=== PATIENT | female | born 1965 | race Caucasian/White ===

== ENCOUNTER 2020-04-05 08:05 | Outpatient (CLI) | payer BC, SELFPAY ==
--- NOTE | ~2020-04-05 | XR_ITS ---
XR clavicle BI DATE: 04/05/2020 08:39 INDICATION: Localized swelling, mass, lump over right clavicle area TECHNIQUE: AP and up angled AP views of each clavicle COMPARISON: None FINDINGS: No fracture, dislocation, periosteal reaction or bone destruction of either clavicle is moisés dent. . There is dextroscoliosis of the upper thoracic spine. IMPRESSION: No significant abnormality of either clavicle is detected Reviewed, dictated and finalized at location A.
== END 2020-04-05 08:06 | disposition home or self-care (01) ==
PROVIDERS: PCP Family Medicine; Visit Provider Family Medicine
DX: R22.9 Localized swelling, mass and lump, unspecified (principal)
CPT/HCPCS: 73000

== ENCOUNTER → 2020-09-10 07:51 | Outpatient (CLI) | payer BC, SELFPAY ==
--- NOTE | ~2020-09-10 | XR_ITS ---
EXAMINATION: XR elbow LT min 3V DATE: 09/10/2020 08:14 INDICATION: Left elbow pain. TECHNIQUE: 4 views of left elbow were obtained. COMPARISON: None. FINDINGS: Bone alignment is normal. No fracture. Joint spaces are well maintained. There is no elbow joint effusion. IMPRESSION: 1. Normal left elbow. Reviewed, dictated and finalized at location B. 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 Normal left elbow.
== END ==
PROVIDERS: PCP Nurse Practitioner; Visit Provider Nurse Practitioner
DX: M25.522 Pain in left elbow (principal)
CPT/HCPCS: 73080

== ENCOUNTER → 2020-11-09 09:55 | Outpatient (CLI) | payer BC, SELFPAY ==
--- NOTE | ~2020-11-09 | MM_ITS ---
EXAMINATION: MM screening [facility] BI w [facility] HISTORY: Screening mammogram TECHNIQUE: Craniocaudal and mediolateral oblique 3-D tomosynthesis images were obtained and synthetic 2-D images were generated. CAD analysis was submitted and interpreted. COMPARISON: 10/04/2019, 04/23/2018, 02/09/2016 BREAST PARENCHYMAL COMPOSITION: There are scattered areas of fibroglandular density. FINDINGS: There is no evidence of suspicious mass, calcification, or architectural distortion to sugg est malignancy in either breast. There has been no suspicious interval change. IMPRESSION: 1. No mammographic evidence of malignancy. 2. Recommend routine screening mammography in one year. BI-RADS Category 1: Negative Reviewed, dictated and finalized at location A. 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
== END ==
PROVIDERS: PCP Nurse Practitioner; Visit Provider Nurse Practitioner
DX: Z12.31 Encounter for screening mammogram for malignant neoplasm of breast (principal)
CPT/HCPCS: 77063; 77067

== ENCOUNTER → 2022-05-07 10:11 | Outpatient (CLI) | payer BC, SELFPAY ==
--- NOTE | ~2022-05-07 | XR_ITS ---
EXAM: XR abdomen/kub 1V DATE: 05/07/2022 11:00 HISTORY: Gross hematuria . COMPARISON: None available. FINDINGS: Clear lung bases. Surgical clips and suture material project over the right lower quadrant . Normal bowel gas pattern. No organomegaly. No abnormal abdominal calcification. Regional bones and soft tissues normal for age. IMPRESSION: Normal abdominal radiograph findings. Reviewed, dictated and finalized at location K.
--- NOTE | ~2022-05-07 | CT_ITS ---
EXAMINATION: CT abdomen pelvis wo/w con DATE: 05/07/2022 11:00 INDICATION: Gross hematuria, frequent urination TECHNIQUE: Computed tomography (CT) of the abdomen and pelvis was performed without and subsequently with 130 CC Omnipaque 300 intravenous contrast. Automated exposure control and iterative reconstructi on technique were employed. Exam dose: 1161.24 mGy-cm total exam DLP. COMPARISON: 05/07/2022 KUB FINDINGS: Minimal bilateral dependent lower lobe atelectasis. Heart size is within normal range. No p ericardial or pleural effusion. The liver, gallbladder, bile ducts, spleen, pancreas, pancreatic duct, and adrenal glands and kidneys appear unremarkable. No urinary tract calculus or hydroureteronephrosis. The urinary bladder is unre markable. Uterus and adnexal areas appear normal. Mild atherosclerotic calcification of the abdominal aorta. No abdominal aortic aneurysm. No intraperitoneal or retroperitoneal or pelvic mass lesion or lymphadenopathy or ascites. There is minimal free fluid in the dependent pelvis. Small sliding hiatal hernia. Surgical clips, right lower quadrant, likely due to appendectomy. Mild sigmoid diverticulosis; no evidence of diverticulitis. No bowel obstruction or free air. Severe degenerative disc disease and minimal retrolisthesis at L5-S1. No suspicious osteolytic or osteoblastic lesions. IMPRESSION: No cause for gross hematuria is detected; no urinary tract calculus or obstruction or ma ss lesion Mild diverticulosis of the colon Small sliding hiatal hernia Reviewed, dictated and finalized at Location A. Reviewed, dictated and finalized at location A. IMPRESSION: No cause for gross hematuria is detected; no urinary tract calculu s or obstruction or mass lesion Mild diverticulosis of the colon Small sliding hiatal hernia
[2022-05-07 10:36] LABS: Estimated Glomerular Filt Rate > 60
== END ==
PROVIDERS: PCP Nurse Practitioner; Visit Provider Nurse Practitioner Family
DX: R31.0 Gross hematuria (principal); K44.9 Diaphragmatic hernia without obstruction or gangrene; K57.30 Diverticulosis of large intestine without perforation or abscess without bleeding
CPT/HCPCS: 74018; 74178; Q9967

== ENCOUNTER → 2023-05-20 11:00 | Outpatient (CLI) | payer BC, SELFPAY ==
--- NOTE | ~2023-05-20 | MM_ITS ---
EXAMINATION: MM screening [facility] HISTORY: Screening TECHNIQUE: Craniocaudal and mediolateral oblique 3-D tomosynthesis images were obtained and synthetic 2-D images were generated. CAD analysis was submitted and interpreted. COMPARISON: Comparison to multiple prior studies sequentially, with oldest reviewed study dated 04/23. BREAST PARENCHYMAL COMPOSITION: There are scattered areas of fibroglandular density. FINDINGS: There is no evidence of suspicious mass, calcification, or architectural distortion to sugg est malignancy in either breast. There has been no suspicious interval change. IMPRESSION: 1. No mammographic evidence of malignancy. 2. Recommend routine screening mammography in one year. BI-RADS Category 1: Negative Reviewed, dictated and finalized at location A.
--- NOTE | ~2023-05-20 | DEXA_ITS ---
Bone Density Report Name: ISABELLA VITAL Age: 57 Sex: Female Ethnicity: White Date of : 1965 Indication: postmenopausal; screening for osteoporosis; height loss; Referring Provider: Rylie Jennings Study: Bone densitometry was performed. Exam Date: May 20, 2023 Accession number: [id number] Bone Density: Region BMD T-score Z-score Classification AP Spine (L1-L4) 1.173 1.1 2.6 Normal Femoral Neck (Left) 0.932 0.8 2.0 Normal Total Hip (Left) 1.084 1.2 2.1 Normal Femoral Neck (Right) 0.900 0.5 1.7 Normal Total Hip (Right) 1.036 0.8 1.7 Normal Total Hip Mean 1.060 1.0 1.9 Normal World Health Organization criteria for BMD impression classify patients as: Normal (T-score at or above -1.0), Osteopenia (T-score between -1.0 and -2.5), or Osteoporosis (T-score at or below -2.5). 10-year Fracture Risk: FRAX not reported because: All T-scores for Spine Total, Hip Total, Femoral Neck at or above -1.0 Previous Exams: Region Exam Age BMD T-score BMD Change BMD Change Date g/cm2 vs Baseline vs Previous AP Spine(L1-L4) 05/20/2023 57 1.173 1.1 -0.006 -0.006 04/23/2018 52 1.179 1.2 Total Hip(Left) 05/20/2023 57 1.084 1.2 0.002 0.002 04/23/2018 52 1.082 1.2 Total Hip(Right) 05/20/2023 57 1.036 0.8 0.018 0.018 04/23/2018 52 1.018 0.6 *Denotes significance at 95% confidence level, LSC for AP Spine = 0.022 g/cm2, LSC for Total Hip = 0.027 g/cm2 Clinical Information Provided by Patient: Has used the following medications: Vitamin D Patient maximum height was 66.0 Menopause Age: 52 Drinks caffeinated beverages Onset of menses at age 10 Number of children 2 Impression: The patient has normal bone mass. No significant bone loss was observed. Discussion: BONE DENSITY IS ABOVE THE MINIMUM DESIRABLE LEVEL AT ALL SKELETAL SITES TESTED. This patient?s bone mineral density is above the minimum desirable level (T-score -1.0 or better) at all sites measured. The patient should follow a healthful lifestyle (good nutrition with adequate calcium and vitamin D, and appropriate weight-bearing exercise). Follow-Up: Consider repeating this study in 5 years or sooner if there is some new clinical indication. Reported by: CARL on 05/20/2023 11:21:00 AM. Reviewed, dictated and finalized at location A. HECTOR
== END ==
PROVIDERS: PCP Nurse Practitioner; Visit Provider Nurse Practitioner
DX: Z12.31 Encounter for screening mammogram for malignant neoplasm of breast (principal); Z78.0 Asymptomatic menopausal state
CPT/HCPCS: 77063; 77067; 77080

== ENCOUNTER 2024-03-10 08:42 | Outpatient (CLI) | payer BC, SELFPAY ==
--- NOTE | ~2024-03-10 | CT_ITS ---
Non-contrast Head CT History: Glaucoma, skin paresthesia Technique: Axial non-contrast imaging of the brain was performed. Dose reduction technique was used on this scan by utilizing automated exposure control and iterative reconstruction technique. The dose -length product (DLP) was 674.51 mGy-cm. Findings: There is no evidence of intracranial hemorrhage, mass lesion, or acute infarct. Brain par enchyma appears normal. The ventricles and subarachnoid spaces are normal in size. The calvarium ap pears normal. The visualized paranasal sinuses and mastoid air cells are clear. Impression: No significant abnormality seen. Reviewed, dictated and finalized at location . Impression: No significant abnormality seen.
== END 2024-03-10 08:43 ==
LOC: MICIMG 08:43
PROVIDERS: PCP Nurse Practitioner Family; Visit Provider Nurse Practitioner Family
DX: H40.9 Unspecified glaucoma (principal)
CPT/HCPCS: 70450

== ENCOUNTER 2024-07-05 13:45 | Outpatient (CLI) | payer BC, SELFPAY ==
--- NOTE | ~2024-07-05 | MM_ITS ---
EXAMINATION: MM diagnostic [facility] HISTORY: Nipple pain TECHNIQUE: Additional 3-D tomosynthesis images of the breasts were performed and synthetic 2-D images were generated. CAD analysis was submitted and interpreted. COMPARISON: Comparison to multiple prior studies sequentially, with oldest reviewed study dated 07/2016. BREAST PARENCHYMAL COMPOSITION: Not dense: There are scattered areas of fibroglandular density. FINDINGS: The breasts are stable. No new masses, calcifications or architectural distortion in either breast to suggest malignancy. IMPRESSION: 1. No mammographic evidence for malignancy in either breast. 2. Routine yearly screening mammogram and regular clinical breast examination are recommended. BI-RADS Category 1: Negative Reviewed, dictated and finalized at location B. IMPRESSION: 1. No mammographic evidence for malignancy in either breast. 2. Routine yearly screening mammogram and regular clinical breast examination a re recommended. BI-RADS Category 1: Negative
== END 2024-07-05 13:46 | disposition home or self-care (01) ==
PROVIDERS: PCP Nurse Practitioner Family; Visit Provider Nurse Practitioner Family
DX: N64.89 Other specified disorders of breast (principal)
CPT/HCPCS: 77062; 77066; G0279

== ENCOUNTER 2025-10-16 12:14 | Outpatient (CLI) | payer OTHER, SELFPAY ==
--- NOTE | ~2025-10-16 | MM_ITS ---
EXAMINATION: MM screening [facility] HISTORY: Screening TECHNIQUE: Craniocaudal and mediolateral oblique 3-D tomosynthesis images were obtained and synthetic 2-D images were generated. CAD analysis was submitted and interpreted. COMPARISON: Comparison to multiple prior studies sequentially, with oldest reviewed study dated , 04/23/2018 BREAST PARENCHYMAL COMPOSITION: Not Dense: There are scattered areas of fibroglandular density. FINDINGS: There is no evidence of suspicious mass, calcification, or architectural distortion to suggest malignancy in either breast. IMPRESSION: 1. No mammographic evidence of malignancy. 2. Recommend routine screening mammography in one year. BI-RADS Category 1: Negative Reviewed, dictated and finalized at location A. 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
== END 2025-10-16 12:15 | disposition home or self-care (01) ==
LOC: MICIMG 12:15
PROVIDERS: PCP Family Medicine; Visit Provider Family Medicine
DX: Z12.31 Encounter for screening mammogram for malignant neoplasm of breast (principal)
CPT/HCPCS: 77063; 77067